=== PATIENT | male | born 1990 | race African-American/Black ===

== ENCOUNTER 2023-11-07 11:04 | Emergency (ER) | payer BC, SELFPAY ==
[2023-11-07 11:06] VITALS: BP 152/101; PULSE 83; RESP 20; TEMP 36.4; O2SAT 100
[2023-11-07 11:14] VITALS: BP 159/94; PULSE 74; RESP 15; O2SAT 98
--- NOTE | 2023-11-07 11:25 | ED.ALLEREA ---
HPI - Allergic Reaction General Chief complaint: Allergic Reaction Stated complaint: allergic reaction Time Seen by Provider: 11/07/23 11:25 Source: patient and family Mode of arrival: ambulatory Limitations: no limitations History of Present Illness HPI narrative: Patient is a pleasant 33-year-old male without and past medical hx presents emergency department today ambulatory with a steady gait for evaluation of having allergic reaction to kiwi. He states that he felt like his face and mouth was swelling and has been sneezing and felt like he had a little bit of tightness in his chest. 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 He did not take anything prior to coming in. He denies any nausea, vomiting, dizziness, headache, difficulty swallowing, sensation of throat swelling, abdominal pain, current chest pain, shortness a breath. Related Data Allergies Allergy/AdvReac Type Severity Reaction Status Date / Time kiwi Allergy Severe Swelling Verified 11/07/23 11:29 of Lip/Tongue/Throat Review of Systems Review of Systems: CONSTITUTIONAL: Denies fever, chills, or sweats. EYES: Denies visual changes, redness, or discharge. ENT: +sneezing, facial/mouth swelling. CARDIOVASCULAR: +initial chest tightness currently denies. Denies chest pain, palpitations, or edema. RESPIRATORY: Denies cough or dyspnea. GASTROINTESTINAL: Denies abdominal pain, nausea, vomiting, or diarrhea. GENITOURINARY: Denies dysuria or hematuria. SKIN: Denies rash or itching. MUSCULOSKELETAL: Denies back pain, joint pain, or myalgia. NEUROLOGIC: Denies headache, numbness, or weakness. PSYCHIATRIC: Denies anxiety or depression. All systems reviewed & are unremarkable except as noted in HPI and below Exam Narrative: GENERAL: Well-appearing, well-nourished, and in no acute distress, resting on exam stretcher, respirations are regular and non-labored. HEAD: Normocephalic, atraumatic. EYES: PERRLA and EOMI. ENT: Nares clear, no rhinorrhea or epistaxis. Mucous membranes moist. no facial swelling, no angioedema, swallowing with ease, controlling secretions. airway patent, uvula midline without any swelling. NECK: Supple. CHEST: Clear to auscultation. No respiratory distress. no wheezing noted, no stridor. no coug noted. HEART: Regular rate and rhythm. No murmur heard. Normal peripheral pulses. ABDOMEN: Soft, nontender, nondistended, normal active bowel sounds. EXTREMITIES: Normal range of motion. No edema. SKIN: Warm, dry, no rash. NEURO: No focal deficits. Alert and oriented x3. CN II-XII grossly intact PSYCH: Normal mood and affect. Course Reevaluation(s) Reevaluation #1: resting, feeling better, ready for dc Date: 11/07/23 Time: 12:40 Vital Signs Vital signs: Vital Signs Temperature 97.6 F 11/07/23 11:06 Pulse Rate 83 11/07/23 11:06 Respiratory Rate 20 11/07/23 11:06 Blood Pressure 152/101 H 11/07/23 11:06 Pulse Oximetry 100 11/07/23 11:06 Oxygen Delivery Room Air 11/07/23 11:06 Temperature 97.6 F 11/07/23 11:06 Pulse Rate 75 11/07/23 13:03 Respiratory Rate 17 11/07/23 13:03 Blood Pressure 148/92 H 11/07/23 13:03 Pulse Oximetry 99 11/07/23 13:03 Oxygen Delivery Room Air 11/07/23 11:06 MDM - Allergic Reaction MDM Narrative Medical decision making narrative: Electronic medical record was reviewed. ? Patient presented to the ED with a complaint of possible allergic reaction. Vitals were within acceptable limits. Physical exam revealed no rash, no evidence of airway compromise, abdominal tenderness, or anaphylaxis. Patient was given benadryl, famotidine, steroids and IV fluids. On re-evaluation, the patient was feeling improved. He has not had worsening of symptoms here and is stable for discharge and will go home with otc benadryl, famotidine, and prednisone and followup with PCP, return for further issues. Patient verbalizes understanding. Patie
[2023-11-07] MEDS: SODIUM CHLORIDE 0.9% IV 1,000 ML 999 ML IV CONT (11:31)
[2023-11-07] MEDS: methylPREDNISolone SOD SUCC 125 MG VIAL IV PUSH (11:33)
[2023-11-07] MEDS: diphenhydrAMINE HCl INJ 50 MG/ML VIAL IV PUSH (11:34)
[2023-11-07] MEDS: FAMOTIDINE 20 MG/2 ML VIAL IV PUSH (11:34)
[2023-11-07 13:03] VITALS: BP 148/92; PULSE 75; RESP 17; O2SAT 99
== END 2023-11-07 13:04 | disposition home or self-care (01) ==
PROVIDERS: Emergency Provider Nurse Practitioner
DX: T78.1XXA Other adverse food reactions, not elsewhere classified, initial encounter (principal); R07.89 Other chest pain
CPT/HCPCS: 96361; 96374; 96375; 99284; J1200; J2930; J7030